=== PATIENT | male | born 1970 | race African-American/Black ===

== ENCOUNTER 2018-05-13 20:17 | Emergency (ER) | payer OTHER ==
[2018-05-13 20:30] VITALS: BP 174/104
--- NOTE | 2018-05-13 21:20 | EDM.PDOC ---
ED HPI GENERAL MEDICAL PROBLEM - General Chief Complaint: Back Pain or Injury Stated Complaint: LOWER BACK PAIN Time Seen by Provider: 05/13/18 21:15 Source of Information: Reports: Patient History Limitations: Reports: No Limitations - History of Present Illness INITIAL COMMENTS - FREE TEXT/NARRATIVE: 48-year-old male presents for evaluation and treatment of low back pain. Patient reports he's been experiencing low back pain for about the last 4 years , intermittently. States the last couple of days he has noticed as low back pain has worsened and he has taken a few days off of work. He is here requesting a note for work. He would like to take off 1 more day and then return on . He reports he has taken Flexeril in the past which seems to alleviate his symptoms. He has not taken a Flexeril the last few days. He states he no longer feels it is working for him he. He has been using over-the- counter ibuprofen with some relief. He reports the pain is in the low back, primarily on the left side, radiates into his left buttocks and left leg. He denies any fevers, chills, urinary incontinence, stool incontinence, numbness or tingling in the extremities. No weakness in the extremities. States he's never had any imaging done of his low back. Right Lower Back Pain Score (Numeric/FACES): 7 - Related Data Allergies Allergy/AdvReac Type Severity Reaction Status Date / Time Penicillins Allergy Unknown Cannot Verified 07/06/16 15:46 CDT Remember Home Meds: Home Meds Albuterol [Take Home: Albuterol 6.7 GM, 1 INH Pack] 1 dose INH BID 07/06/16 [ History] Bp Med 0 mg PO DAILY 07/06/16 [History] Mometasone Furoate 100mcg [Asmanex Hfa] 1 dose IH DAILY 07/06/16 [History] cloNIDine HCl [Catapres] 0.2 mg PO BID #60 tablet 07/06/16 [Rx] Orphenadrine [Norflex] 100 mg PO QID PRN #20 tab.er 05/13/18 [Rx] predniSONE [Prednisone] 20 mg PO DAILY #10 tablet 05/13/18 [Rx] Past Medical History HEENT History: Reports: Impaired Vision Cardiovascular History: Reports: Hypertension Respiratory History: Reports: Asthma Gastrointestinal History: Reports: GERD Musculoskeletal History: Reports: Fracture Neurological History: Reports: Migraines Endocrine/Metabolic History: Reports: Diabetes, Type II Social & Family History - Family History Family Medical History: Noncontributory - Tobacco Use Smoking Status *Q: Current Every Day Smoker Years of Tobacco use: 11 Packs/Tins Daily: 2 - Recreational Drug Use Recreational Drug Use: No ED ROS GENERAL - Review of Systems Review Of Systems: See Below Constitutional: Denies: Fever, Chills GI/Abdominal: Denies: Stool Incontinence : Denies: Incontinence Musculoskeletal: Reports: Back Pain (low back L>> R), Leg Pain (pain radiates into the left leg) Neurological: Denies: Numbness, Tingling, Weakness ED EXAM,LOWER BACK PAIN/INJURY - Physical Exam Exam: See Below Exam Limited By: No Limitations General Appearance: Alert, WD/WN, No Apparent Distress Neck: Normal Inspection, Supple, Non-Tender, Full Range of Motion Respiratory/Chest: No Respiratory Distress, Lungs Clear, Normal Breath Sounds Cardiovascular: Normal Peripheral Pulses, Regular Rate, Rhythm, No Murmur Back Exam: Paraspinal Tenderness (tenderness at the left sciatic notch). No: Muscle Spasm, Vertebral Tenderness Extremities: Normal Inspection, Normal Range of Motion, Non-Tender Neurological: Alert, Normal Dorsiflexion, Normal Plantar Flexion, Normal Gait. No: Straight Leg Raise (L), Straight Leg Raise (R) Psychiatric: Normal Affect, Normal Mood Skin Exam: Warm, Dry, Normal Color Course - Vital Signs Last Recorded V/S: Last Vital Signs Temp 97.4 F 05/13/18 20:27 Pulse 82 05/13/18 20:27 Resp 18 05/13/18 20:27 BP 174/104 H 05/13/18 20:27 Pulse Ox 96 05/13/18 20:27 - Re-Assessments/Exams Free Text/Narrative Re-Assessment/Exam: 05/13/18 21:13 Discussed with patient imaging. I do not feel that he needs an x-ray today. He is agreeable to forego any imaging. I feel his symptoms are consistent with sciatica. He does not want any narcotics. I think we should try him on some muscle relaxers as well as a short course of steroids. He is agreeable to trying this. I recommend following up with his primary care provider. If he does not get better he may require imaging. Discharge instructions as documented. Departure - Departure Time of Disposition: 21:16 Disposition: Home, Self-Care 01 Condition: Good Clinical Impression: Sciatica - Discharge Information *PRESCRIPTION DRUG MONITORING PROGRAM REVIEWED*: No *COPY OF PRESCRIPTION DRUG MONITORING REPORT IN PATIENT KATHY: No Prescriptions: Orphenadrine [Norflex] 100 mg PO QID PRN #20 tab.er PRN Reason: Muscle Spasm predniSONE [Prednisone] 20 mg PO DAILY #10 tablet Instructions: Sciatica, [id number] Referrals: Alisa Downing NP [Primary Care Provider] - Forms: ED Department Discharge, ED Return to Work/School Form Additional Instructions: take the norflex 1 tab PO bid prn muscle spasms take the prednisone 40mg (2tabs) PO daily x 5 days. Take with food. Take in he morning. May take OTC ibuprofen as needed for additional pain relief. Do not take more than 3200mg of ibuprofen in one day. Take with food. May use ice or heat to the back for additional pain relief. May also try something like icyhot or bengay for additional relief. Follow-up with PCP if not much better within 1 week. Please return to the ER should your symptoms change or worsen.
== END 2018-05-13 21:30 | disposition home or self-care (01) ==
LOC: JD.ED 20:17
DX: M54.30 Sciatica, unspecified side (principal); I10 Essential (primary) hypertension; J45.909 Unspecified asthma, uncomplicated; E11.8 Type 2 diabetes mellitus with unspecified complications; K21.9 Gastro-esophageal reflux disease without esophagitis; F17.200 Nicotine dependence, unspecified, uncomplicated; Z88.0 Allergy status to penicillin; Z79.899 Other long term (current) drug therapy
CPT/HCPCS: 99283

== ENCOUNTER 2019-05-11 19:36 | Emergency (ER) | payer BC, OTHER ==
[2019-05-11 19:46] VITALS: BP 183/108
--- NOTE | 2019-05-11 20:32 | EDM.PDOC ---
ED HPI GENERAL MEDICAL PROBLEM - General Chief Complaint: Genitourinary Problem Stated Complaint: GROIN PAIN Time Seen by Provider: 05/11/19 19:44 Source of Information: Reports: Patient History Limitations: Reports: No Limitations - History of Present Illness INITIAL COMMENTS - FREE TEXT/NARRATIVE: The patient presents with right testicle pain and swelling. This has been going on for about a week. 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 He does not remember a specific instance. He has no dysuria, hematuria, or discharge. He has no rashes or lesions. He has no fever, chills , cough, chest pain, shortness of breath, abdominal pain, nausea or vomiting. Onset: Gradual Duration: Week(s): (1) Location: Reports: Other (right testicle) Quality: Reports: Ache Severity: Moderate Improves with: Reports: Immobilization Worsens with: Reports: Movement Context: Reports: Trauma (Possibly) Associated Symptoms: Reports: No Other Symptoms right testicle Pain Score (Numeric/FACES): 6 - Related Data Allergies Allergy/AdvReac Type Severity Reaction Status Date / Time Penicillins Allergy Unknown Cannot Verified 05/11/19 19:41 Remember Home Meds: Home Meds Dulaglutide [Trulicity] 05/11/19 [History] cloNIDine [Catapres TTS-2] 05/11/19 [History] metFORMIN [Glucophage] 1,000 mg PO BIDMEALS 05/11/19 [History] Past Medical History HEENT History: Reports: Impaired Vision Cardiovascular History: Reports: Hypertension Respiratory History: Reports: Asthma Gastrointestinal History: Reports: GERD Musculoskeletal History: Reports: Fracture Neurological History: Reports: Migraines Endocrine/Metabolic History: Reports: Diabetes, Type II Social & Family History - Family History Family Medical History: Noncontributory ED ROS GENERAL - Review of Systems Review Of Systems: See Below Constitutional: Reports: No Symptoms HEENT: Reports: No Symptoms Respiratory: Reports: No Symptoms Cardiovascular: Reports: No Symptoms Endocrine: Reports: No Symptoms GI/Abdominal: Reports: No Symptoms : Denies: Dysuria, Frequency, Urgency Musculoskeletal: Reports: No Symptoms ED EXAM, RENAL/ - Physical Exam Exam: See Below Exam Limited By: No Limitations General Appearance: Alert, No Apparent Distress Ears: Normal External Exam Nose: Normal Inspection Head: Atraumatic, Normocephalic Neck: Normal Inspection Respiratory/Chest: No Respiratory Distress, Lungs Clear, Normal Breath Sounds Cardiovascular: Regular Rate, Rhythm, No Edema, No Murmur GI/Abdominal: Soft, Non-Tender, No Organomegaly, No Mass (Male) Exam: Other (Pain upon palpation to the right testicle with some edema. No rashes noted or discharge.) Course - Vital Signs Last Recorded V/S: Last Vital Signs Temp 97.3 F 05/11/19 19:43 Pulse 78 05/11/19 19:43 Resp 18 05/11/19 19:43 BP 183/108 H 05/11/19 19:43 Pulse Ox 100 05/11/19 19:43 - Orders/Labs/Meds Orders: Active Orders 24 hr Category Date Time Status Scrotum and Contents [US] Stat Exams 05/11/19 19:58 Taken Labs: Laboratory Tests 05/11/19 Range/Units 20:00 Urine Color Yellow (Yellow) Urine Appearance Clear (Clear) Urine pH 6.0 (5.0-8.0) Ur Specific [place] > or = 1.030 (1.005-1.030) Urine Protein Negative (Negative) Urine Glucose (UA) Negative (Negative) Urine Ketones Negative (Negative) Urine Occult Blood Trace-lysed H (Negative) Urine Nitrite Negative (Negative) Urine Bilirubin Negative (Negative) Urine Urobilinogen 0.2 (0.2-1.0) Ur Leukocyte Esterase Negative (Negative) Urine RBC 5-10 H (0-5) /hpf Urine WBC 0-5 (0-5) /hpf Ur Squamous Epith Cells 0-5 (0-5) /hpf Urine Bacteria Few (FEW) /hpf Urine Mucus Few (FEW) /hpf - Re-Assessments/Exams Free Text/Narrative Re-Assessment/Exam: 05/11/19 20:31 I ordered a UA and an US. 05/11/19 21:53 The UA shows a little blood but no UTI. The US shows mild increased vascularity of the right testicle which may be consistent with mild orchitis. Bilateral hydroceles. Small right varicocele. Small left intratesticular cyst. No evidence of testicular torsion. I will have him follow up with Dr Severino if he is not better in a week. Departure - Departure Time of Disposition: 21:55 Disposition: Home, Self-Care 01 Condition: Good Clinical Impression: Orchitis, Bilateral hydrocele, Right varicocele, Testicular cyst - Discharge Information *PRESCRIPTION DRUG MONITORING PROGRAM REVIEWED*: No *COPY OF PRESCRIPTION DRUG MONITORING REPORT IN PATIENT KATHY: No Referrals: Alisa Downing NP [Primary Care Provider] - Toro Severino MD [Ordering Only Provider] - 1 Week Forms: ED Department Discharge Additional Instructions: Take motrin or tylenol for the pain. Try to ice your testicle for 15 minutes 3 times per day for 2 days. Follow up with Dr Severino if you are not better in a week or two. Please return if you are worse. - My Orders Last 24 Hours: My Active Orders 05/11/19 19:58 Scrotum and Contents [US] Stat - Assessment/Plan Last 24 Hours: My Active Orders 05/11/19 19:58 Scrotum and Contents [US] Stat
--- NOTE | 2019-05-12 07:21 | US ---
Testicular ultrasound: Multiple real-time images of the testicles were obtained. Comparison: No prior testicular exam. Findings: Both arterial and venous blood flow are seen within both testicles. Right testicle shows some increased blood flow suggestive of mild orchitis. Small amount of fluid is seen around both testicles compatible with minimal hydroceles. Small cyst is noted within the left testicle measuring 2 mm which is most likely incidental. Question of a small varicocele on the right side is noted. Measurements: Right testicle: 3.6 x 2.2 x 2.9 cm Left testicle: 3.6 x 2.0 x 3.4 cm Impression: 1. Findings suggesting mild orchitis within the right testicle. 2. Small varicocele on the right side. 3. Small bilateral hydroceles. 4. Other findings believed to be incidental as noted above. Diagnostic code #3 I agree with preliminary report from [facility], finalized on 05/11/19, 10:45 PM Central Time
== END 2019-05-11 22:10 | disposition home or self-care (01) ==
LOC: JD.ED 19:36
DX: I86.1 Scrotal varices (principal); N45.2 Orchitis; N43.3 Hydrocele, unspecified; N44.2 Benign cyst of testis; I10 Essential (primary) hypertension; E11.9 Type 2 diabetes mellitus without complications; Z88.0 Allergy status to penicillin; Z79.899 Other long term (current) drug therapy
CPT/HCPCS: 76870; 76870-26; 81001; 93975; 99284-25